=== PATIENT | male | born 1985 | race Caucasian/White ===

== ENCOUNTER 2020-02-13 07:34 | Emergency (ER) | payer MEDICAID ==
[2020-02-13] MEDS ORDERED: methylPREDNISolone Sodium Succinate 125 MG/2 ML SDV IVPUSH ONE (08:16)
[2020-02-13] MEDS ORDERED: Ketorolac 30 MG/ML SDV IVPUSH ONE (08:17)
--- NOTE | 2020-02-13 08:34 | EDM.PDOC ---
ED HPI GENERAL MEDICAL PROBLEM - General Chief Complaint: Back Pain or Injury Stated Complaint: LOWER BACK PAIN Time Seen by Provider: 02/13/20 08:00 Source of Information: Reports: Patient History Limitations: Reports: No Limitations - History of Present Illness INITIAL COMMENTS - FREE TEXT/NARRATIVE: 34-year-old male who woke up in the middle the night last night with intense low back pain just above the sacrum. 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 No radiculopathy or symptoms radiating down the legs. No abdominal pain, fever or urinary complaints. Onset: Unknown/Unsure (Symptoms developed overnight) Location: Reports: Back (Low back) Associated Symptoms: Reports: Other (Tried some ibuprofen a couple hours ago, not helping) - Related Data Allergies Allergy/AdvReac Type Severity Reaction Status Date / Time No Known Allergies Allergy Verified 02/13/20 07:55 Home Meds: Home Meds NK [No Known Home Meds] 02/13/20 [History] Past Medical History - Past Health History Medical/Surgical History: Denies Medical/Surgical History Social & Family History - Tobacco Use Tobacco Use Status *Q: Never Tobacco User ED ROS GENERAL - Review of Systems Review Of Systems: See Below Constitutional: Denies: Fever, Chills Respiratory: Denies: Shortness of Breath Cardiovascular: Denies: Chest Pain GI/Abdominal: Denies: Nausea, Vomiting Neurological: Reports: No Symptoms ED EXAM,LOWER BACK PAIN/INJURY - Physical Exam Exam: See Below Exam Limited By: No Limitations General Appearance: Alert, No Apparent Distress (Looks uncomfortable but not distressed) Head: Atraumatic Neck: Supple, Non-Tender Respiratory/Chest: No Respiratory Distress Back Exam: Paraspinal Tenderness (Very tender to palpation over the paraspinous lower lumbar spine. Some tenderness into the SI joints bilaterally.) Neurological: Alert, Normal Mood/Affect, Oriented x 3. No: Straight Leg Raise (L), Straight Leg Raise (R) Psychiatric: Anxious Skin Exam: Warm, Dry Course - Vital Signs Last Recorded V/S: Last Vital Signs Temp 97.9 F 02/13/20 08:02 Pulse 81 02/13/20 08:02 Resp 14 02/13/20 08:02 BP 114/56 L 02/13/20 08:02 Pulse Ox 98 02/13/20 08:02 - Orders/Labs/Meds Meds: Medications Discontinued Medications Generic Name Dose Route Start Last Admin Trade Name Homer CRAVEN Reason Stop Dose Admin Hydromorphone HCl 0.5 mg 02/13/20 09:56 02/13/20 10:02 Dilaudid IVPUSH 02/13/20 09:57 0.5 mg ONETIME ONE Administration Ketorolac Tromethamine 30 mg 02/13/20 08:17 02/13/20 08:26 Toradol IVPUSH 02/13/20 08:18 30 mg ONETIME ONE Administration Methylprednisolone Sodium Succinate 125 mg 02/13/20 08:16 02/13/20 08:26 Solu-Medrol IVPUSH 02/13/20 08:17 125 mg ONETIME ONE Administration - Re-Assessments/Exams Free Text/Narrative Re-Assessment/Exam: 02/13/20 08:33 An IV was started, patient was given 125 mg of IV Solu-Medrol and 30 mg of Toradol. There were given for extra pain control today and he was encouraged to increase activity as tolerated. A [employer] should search shows no concerning narcotic trends. Recheck in 3 to 4 days if not improving satisfactorily. Departure - Departure Time of Disposition: 12:15 Disposition: Home, Self-Care 01 Clinical Impression: Acute low back pain Qualifiers: Back pain laterality: bilateral Sciatica presence: without sciatica Qualified Code(s): M54.5 - Low back pain - Discharge Information Instructions: Acute Back Pain, Adult Referrals: PCP,None [Primary Care Provider] - Forms: ED Department Discharge Care Plan Goals: Continue with a regular dose of ibuprofen every 8 hours, increase activity as tolerated and gentle stretching or range of motion may be helpful. Use stronger pain medications as prescribed if needed and recheck in 3 to 4 days if not improving satisfactorily. Sepsis Event Note (ED) - Evaluation Sepsis Screening Result: No Definite Risk - Focused Exam Vital Signs: Vital Signs Temp Pulse Resp BP Pulse Ox 02/13/20 08:02 97.9 F 81 14 114/56 L 98
[2020-02-13] MEDS ORDERED: HYDROmorphone 0.5 MG/0.5 ML Syringe IVPUSH ONE (09:56)
== END 2020-02-13 12:15 | disposition home or self-care (01) ==
LOC: JP.ED 07:34
DX: M54.5 Low back pain (principal)
CPT/HCPCS: 96374; 96375; 99283; J1170; J1885; J2930